=== PATIENT | female | born 1985 | race Caucasian/White ===

== ENCOUNTER 2017-01-03 04:44 | Emergency (ER) | payer MEDICAID ==
[~2017-01-03] VITALS: Ht 162.6 cm; Wt 73.3 kg
[~2017-01-03 04:44] MED LIST: NONE PER PT
[2017-01-03 04:46] VITALS: BP 131/79
[2017-01-03] MEDS ORDERED: AZITHROMYCIN 500 MG TABLET ONE (05:26)
[2017-01-03] MEDS ORDERED: CEFTRIAXONE 250 MG ONE (05:27)
[2017-01-03] MEDS ORDERED: AZITHROMYCIN 500 MG TABLET PO ONE (05:30)
[2017-01-03] MEDS ORDERED: CEFTRIAXONE 250 MG IM ONE (05:30)
== END 2017-01-03 05:39 | disposition home or self-care (01) ==
LOC: ED 05:38
DX: Z20.2 Contact with and (suspected) exposure to infections with a predominantly sexual mode of transmission (principal); F17.210 Nicotine dependence, cigarettes, uncomplicated
CPT/HCPCS: 96372; 99283; J0696

== ENCOUNTER → 2019-10-10 | Outpatient (CLI) | payer MEDICAID ==
[2019-10-10 14:11] LABS: HCT (SEDRATE) 39.8 % (34.6-47.8)
[2019-10-10 14:13] LABS: BASOPHILS # (AUTO) 0.07 x10^3/uL (0-0.1); BASOPHILS % (AUTO) 1 % (0-1); EOSINOPHILS # (AUTO) 0.14 x10^3/uL (0-0.4); EOSINOPHILS % (AUTO) 1 % (1-7); LYMPHOCYTES # (AUTO) 2.27 x10^3/uL (1-3.4); LYMPHOCYTES % (AUTO) 22 % (22-44); MD NO; MEAN CORPUSCULAR HEMOGLOBIN 26.8 pg (27.0-34.8); MEAN CORPUSCULAR HGB CONC 32.4 g/dL (32.4-35.8); MEAN CORPUSCULAR VOLUME 82.8 fL (80-100); MEAN PLATELET VOLUME 8.1 fL (7.4-10.4); MONOCYTES # (AUTO) 0.35 x10^3/uL (0.2-0.8); MONOCYTES % (AUTO) 4 % (2-9); NEUTROPHILS # (AUTO) 7.33 x10^3/uL (1.8-6.8); NEUTROPHILS % (AUTO) 72 % (42-75); PLATELET COUNT 378 x10^3/uL (130-400); RED BLOOD COUNT 4.88 x10^6/uL (3.82-5.3); RED CELL DISTRIBUTION WIDTH 14.3 % (9.6-15.2)
[2019-10-10 14:24] LABS: C-REACTIVE PROTEIN, QUANT 1.1 mg/dL (0.02-0.49)
== END | disposition home or self-care (01) ==
LOC: LAB 13:32
PROVIDERS: ATTEND Nurse Practitioner
DX: R22.42 Localized swelling, mass and lump, left lower limb (principal)
CPT/HCPCS: 36415; 84550; 85025; 85651; 86140